=== PATIENT | female | born 2000 | race Caucasian/White ===

== ENCOUNTER 2018-04-07 22:04 | Emergency (ER) | payer BC ==
[~2018-04-07] VITALS: Ht 170.2 cm; Wt 63.5 kg
[2018-04-07] MEDS ORDERED: BALANCED SALT IRRIG SOLN 15 ML IO ONE (22:05)
[2018-04-07] MEDS ORDERED: FLUORESCEIN SODIUM 1 MG OPHTHALMIC STRIP OP ONE (22:05)
[2018-04-07] MEDS ORDERED: TETRACAINE (PONTOCAINE) TOPICAL 30 ML SOLUTION TP ONE (22:05)
[2018-04-07 22:14] VITALS: BP_SYST 124
[2018-04-08] MEDS ORDERED: POLYMYXIN B/TRIMETHOPRIM EYE DROPS 10 mL OP ONE
[2018-04-08] MEDS ORDERED: ERYTHROMYCIN 0.5% EYE OINT 3.5 GM OP ONE
[2018-04-08] MEDS ORDERED: ERYTHROMYCIN BASE 0.5% EYE OINT...G. ONE (00:09)
[2018-04-08 00:20] VITALS: BP_SYST 122
== END 2018-04-08 00:20 | disposition home or self-care (01) ==
LOC: SED 22:04
DX: H10.9 Unspecified conjunctivitis (principal); J45.909 Unspecified asthma, uncomplicated; Z88.1 Allergy status to other antibiotic agents
CPT/HCPCS: 99283